=== PATIENT | female | born 1935 | race Caucasian/White ===

== ENCOUNTER 2017-09-17 17:23 | Emergency (ER) | payer OTHER ==
[~2017-09-17] VITALS: Ht 167.6 cm; Wt 67.0 kg
[~2017-09-17 17:23] MED LIST: BENA40TA3 PO; BIMA2.5D4 OP; BRIM5DRO OP; DULO60CA44 PO; GABA-529 PO; GUAI118L49 PO; LEVO112T7 PO; METF10004 PO; MULT-1146 PO; NATE60TA PO; OMEP40CA34 PO; OXYC-159 PO; PRAV40TA58 PO
[2017-09-17 18:53] LABS: BASOPHILS % 1.5 % (0.0-2.0); EOSINOPHILS % 3.8 % (0.0-5.0); HEMATOCRIT. 31.5 % (36.0-48.0); HEMOGLOBIN. 9.7 g/dL (12.0-16.0); MEAN CORPUSCULAR HEMOGLOBIN 22.6 pg (28.0-32.0); MEAN CORPUSCULAR VOLUME 73.1 fL (81.0-99.0); MEAN PLATELET VOLUME 8.2 fl (7.4-10.4); MONOCYTES % 6.7 % (2.0-8.0); PLATELET 316 x1000/uL (130-400); RED BLOOD CELL COUNT 4.31 mill/uL (4.2-5.4); RED CELL DISTRIBUTION WIDTH 24.9 % (11.6-14.6)
[2017-09-17 18:55] LABS: CHLORIDE 100 mEq/L (98-107)
[2017-09-17 18:58] LABS: PROTHROMBIN TIME 10.1 sec (9.4-11.6)
[2017-09-17 19:25] LABS: PLATELET ESTIMATE NORMAL
[2017-09-17 23:53] VITALS: BP 128/74
== END 2017-09-18 01:00 | disposition home or self-care (01) ==
LOC: ER 17:23
DX: K92.1 Melena (principal); I25.10 Atherosclerotic heart disease of native coronary artery without angina pectoris; E11.9 Type 2 diabetes mellitus without complications; I10 Essential (primary) hypertension; E78.00 Pure hypercholesterolemia, unspecified; Z90.49 Acquired absence of other specified parts of digestive tract; Z88.8 Allergy status to other drugs, medicaments and biological substances
CPT/HCPCS: 36415; 80053; 83690; 85025; 85610; 86850; 86900; 99284